=== PATIENT | male | born 1965 | race Caucasian/White ===

== ENCOUNTER 2022-01-25 11:02 | Outpatient (REF) | payer OTHER, SELFPAY ==
[2022-01-25 13:38] LABS: Alanine Aminotransferase 18 U/L (0-40); Albumin Level 4.6 g/dL (3.5-5.0); Alkaline Phosphatase 54 U/L (39-117); Anion Gap 9 (12-20); Aspartate Amino Transferase 23 U/L (5-37); Bilirubin Total 0.9 mg/dL (0.0-1.0); Blood Urea Nitrogen 14 mg/dL (9-16); Calcium 9.4 mg/dL (8.4-10.2); Carbon Dioxide 29 mmol/L (22-29); Chloride 104 mmol/L (96-108); Cholesterol 213 mg/dL; Estimated Glomerular Filt Rate > 60; Glucose Fasting 92 mg/dL (60-99); HDL Cholesterol 52 mg/dL; LDL Cholesterol Calculated 145 mg/dl; Potassium 4.1 mmol/L (3.3-5.1); Sodium 138 mmol/L (135-145); Total Protein 7.1 g/dL (6.5-8.0); Triglycerides 83 mg/dL
[2022-01-25 13:58] LABS: TSH reflex Free T4 0.91 uIU/mL (0.32-4.0)
[2022-01-25 13:59] LABS: Free T4 (Free Thyroxine) 1.07 ng/dL (0.71-1.85); Thyroid Stimulating Hormone 0.96 uIU/mL (0.32-4.0)
== END 2022-01-25 11:03 | disposition home or self-care (01) ==
LOC: HO.WFDLDS 11:02
PROVIDERS: Visit Provider Family Medicine
DX: Z00.00 Encounter for general adult medical examination without abnormal findings (principal); Z12.5 Encounter for screening for malignant neoplasm of prostate; E03.9 Hypothyroidism, unspecified
CPT/HCPCS: 36415; 80053; 80061; 84153; 84439; 84443

== ENCOUNTER 2022-04-21 12:56 | Outpatient (REF) | payer OTHER, SELFPAY ==
[2022-04-21 14:10] LABS: Appearance Urine CLEAR; Color Urine COLORLESS; Glucose Urine UA NEG (NEG); Leukocyte Esterase Urine TRACE (NEG); Nitrite Urine NEG (NEG); Specific Gravity - Urine <= 1.005 (1.005-1.025); Urine Blood TRACE (NEG); Urine Ketones NEG (NEG); Urine Protein NEG (NEG-TRACE)
[2022-04-21 14:24] LABS: RBC Urine 0 /HPF (0); WBC Urine 0-2 /HPF (0-4)
[2022-04-21 15:01] LABS: Free T4 (Free Thyroxine) 1.05 ng/dL (0.71-1.85); Thyroid Stimulating Hormone 1.41 uIU/mL (0.32-4.0)
[2022-04-23 17:11] LABS: Triiodothyronine T3 Total 111 ng/dL (76-181)
== END 2022-04-21 12:57 | disposition home or self-care (01) ==
LOC: HO.WFDLDS 12:56
PROVIDERS: Visit Provider Family Medicine
DX: E03.9 Hypothyroidism, unspecified (principal)
CPT/HCPCS: 36415; 81001; 81003; 84439; 84443; 84480

== ENCOUNTER 2022-06-16 13:53 | Outpatient (REF) | payer OTHER, SELFPAY ==
--- NOTE | ~2022-06-16 | US_ITS ---
EXAMINATION: US PELVIS LIMITED (BLADDER) CLINICAL INFORMATION: Poor urinary stream. COMPARISON: None TECHNIQUE: Real-time imaging of the bladder. FINDINGS: BLADDER: Well distended. The bladder wall is normal in thickness. No stone or mass. Bilateral ureteral jets are demonstrated. Prevoid bladder volume is 437 mL. Postvoid bladder volume is 172 mL. ADDITIONAL FINDINGS: The prostate gland is enlarged and measures 5.3 x 4.5 x 4.5 cm, volume 55 mL. US/US bladder IMPRESSION: Large post void bladder residual measuring 172 mL. Slightly enlarged prostate gland..
== END 2022-06-16 13:54 | disposition home or self-care (01) ==
LOC: HO.US 13:53
PROVIDERS: Visit Provider Urology
DX: R39.12 Poor urinary stream (principal); N32.0 Bladder-neck obstruction
CPT/HCPCS: 76857

== ENCOUNTER 2022-06-18 08:45 | Outpatient (REF) | payer OTHER, SELFPAY ==
[2022-06-18 11:40] LABS: PSA,Total (Free>4and<10) 4.64 ng/mL (0.00-4.00)
[2022-06-21 11:17] LABS: Free Prostate Spec Ag 0.8 ng/mL; Percent Free Prostate Spec Ag 15 % (calc) (>25); Prostate Specific Ag Total 5.4 ng/mL (< OR = 4.0)
== END 2022-06-18 08:46 | disposition home or self-care (01) ==
LOC: HO.10HDL 08:45
PROVIDERS: Visit Provider Urology
DX: R97.20 Elevated prostate specific antigen [PSA] (principal); Z12.5 Encounter for screening for malignant neoplasm of prostate
CPT/HCPCS: 36415; 84153; 84154

== ENCOUNTER 2022-07-21 09:34 | Outpatient (REF) | payer OTHER, SELFPAY ==
[2022-07-21 12:22] LABS: Cholesterol 219 mg/dL; HDL Cholesterol 55 mg/dL; LDL Cholesterol Calculated 148 mg/dl; Triglycerides 81 mg/dL
== END 2022-07-21 09:35 | disposition home or self-care (01) ==
LOC: HO.WFDLDS 09:34
PROVIDERS: Visit Provider Family Medicine
DX: Z00.00 Encounter for general adult medical examination without abnormal findings (principal); E03.9 Hypothyroidism, unspecified; E78.00 Pure hypercholesterolemia, unspecified
CPT/HCPCS: 36415; 80061

== ENCOUNTER 2022-09-06 08:26 | Outpatient (REF) | payer OTHER, SELFPAY ==
[2022-09-06 11:45] LABS: PSA,Total (Free>4and<10) 8.46 ng/mL (0.00-4.00)
[2022-09-07 11:09] LABS: Free Prostate Spec Ag 0.8 ng/mL; Percent Free Prostate Spec Ag 10 % (calc) (>25); Prostate Specific Ag Total 7.9 ng/mL (< OR = 4.0)
== END 2022-09-06 08:27 | disposition home or self-care (01) ==
LOC: HO.10HDL 08:26
PROVIDERS: Visit Provider Urology
DX: Z12.5 Encounter for screening for malignant neoplasm of prostate (principal); R97.20 Elevated prostate specific antigen [PSA]
CPT/HCPCS: 36415; 84153; 84154

== ENCOUNTER 2022-09-29 07:14 | Outpatient (REF) | payer OTHER, SELFPAY ==
[2022-09-29 07:53] VITALS: BMI 25.8
[2022-09-29 07:54] VITALS: BP 170/92; PULSE 54; RESP 16; TEMP 36.7; O2SAT 100
--- NOTE | 2022-09-29 08:22 | W.PM.OPN ---
Operative Note Operative Note Date of Service: 09/29/22 Narrative: Preoperative diagnosis: Elevated PSA Postoperative diagnosis: Elevated PSA Procedure: 1. transrectal ultrasound measurement of prostate 2. transrectal ultrasound-guided pudendal nerve block 3. transrectal ultrasound-guided prostate biopsy 12 core Surgeon: Dr. Washington King Anesthetic: Local Indications for procedure: Elevated PSA 7.9 10% free Procedure: After informed consent was verified, the patient was brought into the procedure area and lay left-hand side down on the table. Patient identity confirmed. Perioperative antibiotics confirmed. Safety pause time out performed. EMMANUEL performed to dilate rectal sphincter Iodine 10cc with Gel was placed per rectum Ultrasound probe was placed per rectum The prostate was measured in 3 dimensions Total volume equals 60 gm No cystic structures were noted No calcifications were noted at the surgical margin The prostate was otherwise homogeneous in nature An ultrasound-guided pudendal nerve block was performed using 10 cc of 1% lidocaine. 8 cc was placed at the base and 2 cc of the apex. A 12 core biopsy was performed with 6 cores each side. Two cores were taken at the apex, mid and base. Cores were spaced between lateral and medial. He tolerated the procedure well. Was able to ambulate to bathroom after 5 minutes. Printed instructions regarding antibiotic use and common side effects such as low-grade temperature, potential infection and bleeding were given Pathology: 12 core prostate biopsy.
[2022-09-29 08:35] VITALS: BP 103/61; PULSE 57; RESP 16; O2SAT 100
== END 2022-09-29 07:15 | disposition home or self-care (01) ==
LOC: HO.MS 07:14
PROVIDERS: PCP Family Medicine; Visit Provider Urology
PROC: (CPT 55700; principal; 2022-09-29 08:00)
DX: R97.20 Elevated prostate specific antigen [PSA] (principal)
CPT/HCPCS: 55700; 76942; 88305

== ENCOUNTER → 2022-10-06 13:09 | Outpatient (BNVA) | payer OTHER, SELFPAY | PROVIDERS: PCP Family Medicine; Visit Provider Urology | DX: R97.20 Elevated prostate specific antigen [PSA] (principal) ==

== ENCOUNTER 2022-10-22 09:21 | Outpatient (REF) | payer OTHER, SELFPAY ==
[2022-10-22 12:53] LABS: Free T4 (Free Thyroxine) 0.97 ng/dL (0.71-1.85); Thyroid Stimulating Hormone 4.26 uIU/mL (0.32-4.0)
[2022-10-23 08:04] LABS: Triiodothyronine T3 Total 103 ng/dL (76-181)
== END 2022-10-22 09:22 | disposition home or self-care (01) ==
LOC: HO.WFDLDS 09:21
PROVIDERS: Visit Provider Family Medicine
DX: E03.9 Hypothyroidism, unspecified (principal)
CPT/HCPCS: 36415; 84439; 84443; 84480

== ENCOUNTER 2022-10-25 09:36 | Outpatient (REF) | payer OTHER, SELFPAY ==
[2022-10-25 13:06] LABS: Free T4 (Free Thyroxine) 0.94 ng/dL (0.71-1.85)
[2022-10-26 07:23] LABS: Triiodothyronine T3 Total 109 ng/dL (76-181)
== END 2022-10-25 09:37 | disposition home or self-care (01) ==
LOC: HO.WFDLDS 09:36
PROVIDERS: Visit Provider Family Medicine
DX: E03.9 Hypothyroidism, unspecified (principal); E78.00 Pure hypercholesterolemia, unspecified
CPT/HCPCS: 36415; 84439; 84480

== ENCOUNTER 2023-01-03 08:04 | Outpatient (REF) | payer OTHER, SELFPAY ==
[2023-01-03 12:36] LABS: Anion Gap 10 (12-20); Blood Urea Nitrogen 13 mg/dL (9-16); Carbon Dioxide 29 mmol/L (22-29); Chloride 105 mmol/L (96-108); Cholesterol 183 mg/dL; Estimated Glomerular Filt Rate > 60; Glucose Random 82 mg/dL (60-115); HDL Cholesterol 53 mg/dL; LDL Cholesterol Calculated 116 mg/dl; Potassium 4.3 mmol/L (3.3-5.1); Sodium 140 mmol/L (135-145); Triglycerides 74 mg/dL
== END 2023-01-03 08:05 | disposition home or self-care (01) ==
LOC: HO.WFDLDS 08:04
PROVIDERS: Visit Provider Family Medicine
DX: Z00.00 Encounter for general adult medical examination without abnormal findings (principal); E78.00 Pure hypercholesterolemia, unspecified
CPT/HCPCS: 36415; 80048; 80061

== ENCOUNTER 2023-01-19 07:52 | Outpatient (REF) | payer OTHER, SELFPAY ==
[2023-01-19 11:45] LABS: Free T4 (Free Thyroxine) 0.94 ng/dL (0.71-1.85); TSH reflex Free T4 2.96 uIU/mL (0.32-4.0)
[2023-01-21 17:08] LABS: Triiodothyronine T3 Total 104 ng/dL (76-181)
== END 2023-01-19 07:53 | disposition home or self-care (01) ==
LOC: HO.WFDLDS 07:52
PROVIDERS: Visit Provider Family Medicine
DX: Z00.00 Encounter for general adult medical examination without abnormal findings (principal); E03.9 Hypothyroidism, unspecified
CPT/HCPCS: 36415; 84439; 84443; 84480

== ENCOUNTER 2023-03-22 07:33 | Outpatient (REF) | payer OTHER, SELFPAY ==
[2023-03-22 11:24] LABS: PSA,Total (Free>4and<10) 7.37 ng/mL (0.00-4.00)
[2023-03-28 12:09] LABS: Free Prostate Spec Ag 0.9 ng/mL; Percent Free Prostate Spec Ag 13 % (calc) (>25); Prostate Specific Ag Total 6.7 ng/mL (< OR = 4.0)
== END 2023-03-22 07:34 | disposition home or self-care (01) ==
LOC: HO.10HDL 07:33
PROVIDERS: Visit Provider Urology
DX: Z12.5 Encounter for screening for malignant neoplasm of prostate (principal); N13.8 Other obstructive and reflux uropathy; N40.1 Benign prostatic hyperplasia with lower urinary tract symptoms; R97.20 Elevated prostate specific antigen [PSA]
CPT/HCPCS: 36415; 84153; 84154

== ENCOUNTER 2023-04-12 15:19 | Outpatient (AMB) | payer OTHER, SELFPAY ==
--- NOTE | 2023-04-12 15:42 | MHC.OFFVIS ---
Intake Intake Visit Reasons: 6M PSA(set) Intake Note: Patient is present for Follow Up PSA Urology Med: None Antibiotic Allergy:None Blood Thinner: none Allergies No Known Allergies Allergy (Verified 01/11/23 08:54) HPI HPI Comments History of Present Illness Details Alexei is a pleasant male. He is a patient of Dr. Daily. He is seen for the following urologic conditions - elevated PSA Negative prostate biopsy Six month follow-up PSA Persistent elevated PSA Trial finasteride Elevated PSA Family history of BPH EMMANUEL 2+ prostate Prostate Biopsy - 09/23 Negative Inflammed 60gm PSA 03/24 5.6, 09/23 7.9 10%, 03/25 6.7 13% Discussed variability with PSA testing PFSH Medical History Hypothyroidism Surgical History H/O prostate biopsy Social History Housing: House Patient Tobacco Use Status: Never used Tobacco e-Cigarette/Vaping Use: Never Used Second Hand Smoke Exposure: No service: No Current occupational status: retired Current occupational exposures/hazards: No Cognitive needs: No Hearing needs: No Vision needs: No Review of Systems Const Denies chills and Denies fever(s) Card Reports no additional complaints and Denies syncope Resp Denies cough GI Denies abdominal pain and Denies heartburn Reports as per HPI and Denies change in libido Neuro Denies syncope Psych Denies change in libido Endo Denies change in libido Physical Exam Const General: cooperative, healthy appearing, comfortable and no acute distress Orientation/consciousness: patient oriented x3 HEENT Face and sinus: Yes normal facial exam Mouth: moist mucous membranes Neck Neck: Yes normal visual inspection, Yes full ROM and Yes trachea midline Chest Chest palpation & inspection: normal inspection of the chest Resp Effort & Inspection: normal respiratory effort, able to speak in complete sentences and no respiratory distress GI Inspection: Yes normal to inspection Back/Spine/Pelvis Cervical Spine: normal cervical lordosis Thoracic/Lumbar Spine: thoracic and lumbar spine normal to inspection Skin General skin exam: no rashes or lesions noted Neuro General: patient oriented x3, gait normal, tone normal and moves all extremities Extrem General: Yes normal to inspection and Yes capillary refill normal Assessment & Plan Assessment & Plan (1) Elevated PSA: Code(s): R97.20 - Elevated prostate specific antigen [PSA] Plan 6 month follow-up PSA Orders: Orders PSA,Total (Free>4and<10) 6 Months R97.20 - Elevated prostate specific antigen [PSA] Medications: New finasteride 5 mg PO DAILY 90 days 90 tabs 1RF R97.20 - Elevated prostate specific antigen [PSA] Patient Instructions: Imaging studies, laboratory and physical exam results were discussed and reviewed in detail. No major barriers to patient understanding were identified. An opportunity to ask questions regarding the treatment plan was provided. All questions were answered. The patient expressed understanding and agreement with the above treatment plan. The patient is aware they should contact our office by phone for worsening of their current condition or the appearance of new urologic symptoms. Compliance is encouraged with any medications and followup testing that is ordered. It is a privilege to participate in the urologic care of your patient. If you have any questions or concerns regarding treatment for the above conditions, or other urologic issues, please do not hesitate to contact me. The office telephone contact is [phone]. This note is constructed using voice recognition software. While every effort has been made to ensure accuracy curb setter errors may have been included. Yours sincerely, Dr Washington King MD, EMMANUELLE [facility] - Urology Providers of Expert, Compassionate Care for the Genitourinary System Coding Level of Care Code Est Pt Level 4 (91217) Diagnoses Elevated PSA R97.20
== END 2023-04-12 16:01 | disposition home or self-care (01) ==
PROVIDERS: Visit Provider Urology
DX: R97.20 Elevated prostate specific antigen [PSA] (principal)
CPT/HCPCS: 99214

== ENCOUNTER → 2023-04-12 15:19 | Outpatient (BNVA) | payer OTHER, SELFPAY | PROVIDERS: Visit Provider Urology ==

== ENCOUNTER 2023-10-07 07:56 | Outpatient (REF) | payer OTHER, SELFPAY | END 2023-10-07 07:57 | disposition home or self-care (01) | LOC: HO.LAB 07:56 | PROVIDERS: PCP Family Medicine; Visit Provider Urology | DX: Z12.5 Encounter for screening for malignant neoplasm of prostate (principal); R97.20 Elevated prostate specific antigen [PSA] | CPT/HCPCS: 36415; 84153 ==

== ENCOUNTER 2023-10-14 08:54 | Outpatient (AMB) | payer OTHER, SELFPAY ==
--- NOTE | 2023-10-14 08:55 | MHC.OFFVIS ---
Intake Intake Visit Reasons: 6M PSA(set)Conf Intake Note: Patient is Present for Telephone Follow Up PSA Urology Med:Finasteride Antibiotic Allergy: None Blood Thinner: None PSA- 10/07/2023- 3.41 Allergies No Known Allergies Allergy (Verified 01/11/23 08:54) Medication List - Last Reconciled 10/14/23 by Washington King MD finasteride 5 mg PO DAILY 90 days levothyroxine 125 mcg PO DAILY 90 days HPI HPI Comments History of Present Illness Details Alexei is a pleasant male. He is a patient of Dr. Daily. He is seen for the following urologic conditions - elevated PSA Telemedicine Evaluation 15 min Consultation Doximity Damien Video attempted Negative prostate biopsy Six month follow-up PSA has dropped Persistent elevated PSA Elevated PSA Family history of BPH EMMANUEL 2+ prostate Prostate Biopsy - 09/23 Negative Inflammed 60gm PSA 03/24 5.6, 09/23 7.9 10%, 03/25 6.7 13%, 10/26 3.4 Discussed variability with PSA testing PFSH Medical History Hypothyroidism Surgical History H/O prostate biopsy Social History Housing: House Patient Tobacco Use Status: Never used Tobacco e-Cigarette/Vaping Use: Never Used Second Hand Smoke Exposure: No service: No Current occupational status: retired Current occupational exposures/hazards: No Cognitive needs: No Hearing needs: No Vision needs: No Review of Systems Const All systems reviewed & are unremarkable except as noted in HPI and below Reports no additional complaints Resp Reports no additional complaints GI Reports no additional complaints Reports as per HPI Musc Reports no additional complaints Physical Exam Telemedicine evaluation Appropriate responses Regular breathing rate and rhythm HEENT Head: Yes normal to inspection Ears: hearing grossly normal bilaterally Eyes General: appearance normal, both eyes and all related structures Neck Neck: Yes normal visual inspection Chest Chest palpation & inspection: normal inspection of the chest Resp Effort & Inspection: normal respiratory effort and able to speak in complete sentences Assessment & Plan Assessment & Plan (1) Bladder outlet obstruction: Code(s): N32.0 - Bladder-neck obstruction (2) Elevated PSA: Code(s): R97.20 - Elevated prostate specific antigen [PSA] Plan Six-month follow-up PSA Orders: Orders Prostate Specific Antigen 6 Months R97.20 - Elevated prostate specific antigen [PSA] Medications: Refilled finasteride 5 mg PO DAILY 90 days 90 tabs 1RF R97.20 - Elevated prostate specific antigen [PSA] Patient Instructions: Imaging studies, laboratory and physical exam results were discussed and reviewed in detail. No major barriers to patient understanding were identified. An opportunity to ask questions regarding the treatment plan was provided. All questions were answered. The patient expressed understanding and agreement with the above treatment plan. The patient is aware they should contact our office by phone for worsening of their current condition or the appearance of new urologic symptoms. Compliance is encouraged with any medications and followup testing that is ordered. It is a privilege to participate in the urologic care of your patient. If you have any questions or concerns regarding treatment for the above conditions, or other urologic issues, please do not hesitate to contact me. The office telephone contact is [phone]. This note is constructed using voice recognition software. While every effort has been made to ensure accuracy media marketing director errors may have been included. Yours sincerely, Dr Washington King MD, EMMANUELLE [facility] - Urology Providers of Expert, Compassionate Care for the Genitourinary System Telehealth Telehealth Location of provider rendering services: practice address Location of patient: address on file Patient Identification confirmed using: Name, : Yes Telehealth method: video Patient verbally consented to treatment: Yes Patient verbally consented to billing insurance company: Yes Patient informed of any privacy concerns related to visit: Yes Coding Level of Care Code Tele Est Pt Level 3 (98755) Diagnoses Bladder outlet obstruction N32.0 Elevated PSA R97.20
== END 2023-10-14 09:29 | disposition home or self-care (01) ==
LOC: HO.HUSH 08:54
PROVIDERS: PCP Family Medicine; Referring Provider Family Medicine; Visit Provider Urology
DX: N32.0 Bladder-neck obstruction (principal); R97.20 Elevated prostate specific antigen [PSA]
CPT/HCPCS: 99213

== ENCOUNTER → 2023-10-14 08:54 | Outpatient (BNVA) | payer OTHER, SELFPAY | PROVIDERS: PCP Family Medicine; Visit Provider Urology ==

== ENCOUNTER 2024-04-04 08:12 | Outpatient (REF) | payer OTHER, SELFPAY ==
[2024-04-04 11:42] LABS: Prostate Specific Antigen 3.02 ng/mL (<0.05-4.0)
== END 2024-04-04 08:13 | disposition home or self-care (01) ==
LOC: HO.10HDL 08:12
PROVIDERS: Visit Provider Urology
DX: R97.20 Elevated prostate specific antigen [PSA] (principal); Z12.5 Encounter for screening for malignant neoplasm of prostate
CPT/HCPCS: 36415; 84153

== ENCOUNTER 2024-05-22 08:21 | Outpatient (AMB) | payer OTHER, SELFPAY ==
--- NOTE | 2024-05-22 08:27 | MHC.OFFVIS ---
Intake Visit Reasons: 6M Follow Up-PSA(SET) Intake Note: Patient presents today for follow up on: PSA Urology Med:Finasteride Antibiotic Allergy: None Blood Thinner: None PSA: 04/04/24- 3.02 Dog Food Shredder Operator Required: No Allergies No Known Allergies Allergy (Verified 05/22/24 08:32) HPI Comments Details: Alexei is a pleasant male. He is a patient of Dr. Daily. He is seen for the following urologic conditions - elevated PSA PSA stable Prior Negative prostate biopsy PSA continues slow drop Continue finasteride / tab t.i.w. Six-month follow-up PSA tele Elevated PSA Family history of BPH EMMANUEL 2+ prostate Prostate Biopsy - 09/23 Negative Inflamed 60gm PSA 03/24 5.6, 09/23 7.9 10%, 03/25 6.7 13%, 10/26 3.4, 04/25 3.0 Discussed variability with PSA testing PFSH Medical History Hypothyroidism Surgical History H/O prostate biopsy Social History Housing: House Patient Tobacco Use Status: Never used Tobacco e-Cigarette/Vaping Use: Never Used Second Hand Smoke Exposure: No service: No Current occupational status: retired Current occupational exposures/hazards: No Cognitive needs: No Hearing needs: No Vision needs: No Review of Systems Const Denies chills and Denies fever(s) Card Reports no additional complaints and Denies syncope Resp Denies cough GI Denies abdominal pain and Denies heartburn Reports as per HPI and Denies change in libido Neuro Denies syncope Psych Denies change in libido Endo Denies change in libido Physical Exam Const General: cooperative, healthy appearing, comfortable and no acute distress Orientation/consciousness: patient oriented x3 HEENT Face and sinus: Yes normal facial exam Mouth: moist mucous membranes Neck Neck: Yes normal visual inspection, Yes full ROM and Yes trachea midline Chest Chest palpation & inspection: normal inspection of the chest Resp Effort & Inspection: normal respiratory effort, able to speak in complete sentences and no respiratory distress GI Inspection: Yes normal to inspection Back/Spine/Pelvis Cervical Spine: normal cervical lordosis Thoracic/Lumbar Spine: thoracic and lumbar spine normal to inspection Skin General skin exam: no rashes or lesions noted Neuro General: patient oriented x3, gait normal, tone normal and moves all extremities Extrem General: Yes normal to inspection and Yes capillary refill normal Assessment & Plan Assessment & Plan (1) Bladder outlet obstruction: Code(s): N32.0 - Bladder-neck obstruction Category: Medical (2) Elevated PSA: Code(s): R97.20 - Elevated prostate specific antigen [PSA] Category: Medical Plan Six-month follow-up PSA tele Orders: Orders PSA,Total (Free>4and<10) 6 Months R97.20 - Elevated prostate specific antigen [PSA] Medications: Refilled finasteride 5 mg PO DAILY 90 days 90 tabs 1RF R97.20 - Elevated prostate specific antigen [PSA] Patient Instructions: Imaging studies, laboratory and physical exam results were discussed and reviewed in detail. No major barriers to patient understanding were identified. An opportunity to ask questions regarding the treatment plan was provided. All questions were answered. The patient expressed understanding and agreement with the above treatment plan. The patient is aware they should contact our office by phone for worsening of their current condition or the appearance of new urologic symptoms. Compliance is encouraged with any medications and followup testing that is ordered. It is a privilege to participate in the urologic care of your patient. If you have any questions or concerns regarding treatment for the above conditions, or other urologic issues, please do not hesitate to contact me. The office telephone contact is [phone]. This note is constructed using voice recognition software. While every effort has been made to ensure accuracy vaccine customer representative errors may have been included. Yours sincerely, Dr Washington King MD, EMMANUELLE [facility] - Urology Providers of Expert, Compassionate Care for the Genitourinary System Coding Level of Care Code Est Pt Level 3 (86770) Diagnoses Bladder outlet obstruction N32.0 Elevated PSA R97.20
== END 2024-05-22 08:58 | disposition home or self-care (01) ==
LOC: HO.HUSH 08:21
PROVIDERS: PCP Family Medicine; Visit Provider Urology
DX: N32.0 Bladder-neck obstruction (principal); R97.20 Elevated prostate specific antigen [PSA]
CPT/HCPCS: 99213

== ENCOUNTER → 2024-05-22 08:21 | Outpatient (BNVA) | payer OTHER, SELFPAY | PROVIDERS: PCP Family Medicine; Visit Provider Urology ==

== ENCOUNTER 2024-07-25 07:59 | Outpatient (AMB) | payer OTHER, SELFPAY ==
--- NOTE | 2024-07-25 07:59 | A.OFFPC_ITS ---
Vital Signs 07/25/24 08:06 Height 5 ft 10 in Weight 184 lb 2 oz BMI 26.4 BP 138/76 Blood Pressure Location Lt brachial Position Sitting Respiration 14 Pulse 53 Pulse Source Pulse Oximeter Pulse Oximetry (%) 98 Oxygen Delivery Method Room Air Intake Visit Reasons: CPE Intake Note: annual physical Allergies No Known Allergies Allergy (Verified 07/25/24 08:12) Medication List - Last Reconciled 07/25/24 by Rhiannon Hernandez, [facility]- finasteride 5 mg PO DAILY 90 days levothyroxine 125 mcg PO DAILY 90 days Tobacco use date assessed: 07/25/24 Dental Screening Dental Screen Date: 07/25/24 Did you have a dental visit in the last 12 months?: Yes Did you have a dental problem in the last 6 months where you did not have access to dental care?: No Was dental information given to patient?: Patient has dentist HPI HPI Comments History of Present Illness Details 58 y/o M with hypothyroid, family hx col on ca, hyperlipidemia, BPH with elevated PSA, cataracts bilat s/p prostate bx benign, left index distal phalanx amputation, s/p repair R fibula and tendon tear 01/2024 Family hx: Dad colon ca age 50; Sister breast ca age 42; 3 brothers, 6 sisters, 2 dtrs HM: Colon 2019, repeat 5 years [facility] Tdap 2011, given today Shingles recommended getting this at pharmacy scheduler [facility] Here today for CPE Feels well. 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 No longer ff'd by Ortho. Did not need PT. Due for labs Optho did have eye appt d/t poor vision, told small cataracts; return PRN Skin no changes, no personal hx of skin cancer. Dad had areas removed from skin but noncancerous Diet is good Hearing is good Plan: Labs today Tdap today Get shingles at pharmacy Refill levothyroxine same dose Lifestyle mods and Diet education for lipids, annual monitoring Cont care w/ care team RTO 1 year CPE, sooner PRN Labs from today show normal electrolytes, normal renal function, hemoglobin A1c 5.1%, AST elevated at 53, ALT elevated at 69, total cholesterol 182, triglycerides 114, LDL 120, HDL 40, TSH 2.68, normal urine microalbumin creatinine ratio PFSH Medical History Hypothyroidism Surgical History H/O prostate biopsy Social History Housing: House Patient Tobacco Use Status: Never used Tobacco e-Cigarette/Vaping Use: Never Used Second Hand Smoke Exposure: No service: No Current occupational status: retired Current occupational exposures/hazards: No Cognitive needs: No Hearing needs: No Vision needs: No Questionnaire PHQ-9 Over the last 2 weeks, how often have you been bothered by any of the following problems? 1. Little interest or pleasure in doing things: not at all 2. Feeling down, depressed, or hopeless: not at all 3. Trouble falling or staying asleep, or sleeping too much: not at all 4. Feeling tired or having little energy: not at all 5. Poor appetite or overeating: not at all 6. Feeling bad about yourself - or that you are a failure or have let yourself or your family down: not at all 7. Trouble concentrating on things, such as reading the newspaper or watching television: not at all 8. Moving or speaking so slowly that other people could have noticed. Or the opposite - being so fidgety or restless that you have been moving around a lot more than usual: not at all 9. Thoughts that you would be better off or of hurting yourself in some way: not at all Total score: 0 Depression Screening Interpretation: Negative Depression Screening Done: Yes 82138 - PHQ-9 Billing: Yes Source: Developed by Drs. Wenceslao Camilo, Bibiana Gleason, Rahul David and colleagues, with an educational senait from [employer]. Thrive Questionnaire Date Thrive assessed: 07/25/24 I am a: Patient What is your living situation today?: I have a steady place to live Within the past 12 months, did the food you bought not last and you didn't have the money to get more?: I choose not to answer this question Within the past 12 months, did you worry whether your food would run out before you got money to buy more?: Never true Do you have trouble paying for medicines?: No Do you have trouble getting transportation to medical appointments?: No Do you have trouble paying your heating and electricity bill?: No Do you have trouble taking care of your child, family member or friend?: No Do you have trouble with day-to-day activities such as bathing, preparing meals, shopping, managing finances, etc.?: No Are you currently unemployed and looking for a job?: No Are you interested in more education?: No Please select the resources that you would like help with: None Currently or been in a relationship where the following occur: No concerns reported THRIVE Score: 0 AUDIT C Alcohol Use Questionnaire (AUDIT-C) 1. How often do you have a drink containing alcohol?: 2-4 times a month 2. How many drinks containing alcohol do you have on a typical day when you are drinking?: 1 or 2 3. How often do you have six or more drinks on one occasion?: Never Total Score: 2 Score Reviewed/Action Taken: Yes TIO-7 AMB Questionnaire TIO-7 Date TIO - 7 assessed: 07/25/24 Feeling nervous, anxious, or on edge: 0 = Not at all Not being able to stop or control worryin = Not at all Worrying too much about different things: 0 = Not at all Trouble relaxin = Not at all Being so restless that it is hard to sit still: 0 = Not at all Becoming easily annoyed or irritable: 0 = Not at all Feeling afraid as if something awful might happen: 0 = Not at all Total TIO-7 score (0-4 normal; 5-9 mild; 10-14 moderate; 15-21 severe): 0 Source: Developed by Drs. Wenceslao Camilo, Bibiana Gleason, Rahul David and colleagues, with an educational senait from [employer]. TIO-7 Assessment Billing TIO-7 Assessment Tool: TIO-7 Assessment 38600 Review of Systems Const Details: Constitutional: Denies fever. Skin: Denies rash. Eye: Denies eye pain. ENMT: Denies sore throat and nasal congestion. Respiratory: Denies shortness of breath and cough. Gastrointestinal: Denies nausea, vomiting or abdominal pain. Cardiovascular: Denies chest pain and syncope. Genitourinary: Denies dysuria. Musculoskeletal: Denies back pain and extremity pain. Neurologic: Denies headaches, confusion, and weakness. Psychiatric: Denies suicidal thoughts and substance abuse. Allergy/ Immunologic: Denies impaired immunity. Physical exam (Primary Care) Vital Signs: Last Vital Signs Pulse 53 07/25/24 08:06 Resp 14 07/25/24 08:06 BP 138/76 07/25/24 08:06 Pulse Ox 98 07/25/24 08:06 Oxygen Delivery Method Room Air 07/25/24 08:06 BMI result Body Mass Index 26.4 Tobacco/Smoking Status: Tobacco use Status Tobacco use date assessed 07/25/24 07/25/24 08:06 Patient Tobacco Use Status Never used Tobacco 07/25/24 08:00 e-Cigarette/Vaping Use Never Used 07/25/24 08:00 PHQ-9: PHQ-9 Score PHQ-9: Total score 0 07/25/24 08:38 Depression Screening Interpretation: Negative Thrive Assessment: Date of Thrive Assessment Date Thrive assessed 07/25/24 07/25/24 08:06 Currently or been in a relationship where the following occur: No concerns reported Const Other: General: Well developed, well nourished, in no acute distress. Appears stated age. Head: Normocephalic, atraumatic. Eyes: Pupils are equal, round and reactive to light and accommodation. Conjunctivae are clear. Vision grossly normal. Ears: TMs clear AU, EACS WNL Nose: Patent, without discharge. Mouth: There are no ulcers or lesions noted. No inflammation, no post nasal drip, no plaques nor exudates. Neck: Supple, no adenopathy or thyromegaly. Lungs: Clear to auscultation bilaterally. No rales, rhonchi or wheeze noted. Good air flow in all nicole. Heart: Regular rate and rhythm. No murmurs, click, rubs or gallops are noted. Abdomen: Bowel sounds present in all quadrants. The abdomen is soft, nontender, with no masses or organomegaly noted. No hernias are noted. Musculoskeletal: Joints are nontender, without swelling, redness, or effusions. Range of motion is observed to be normal. Pulses: Peripheral pulses are equal and palpable bilaterally. Extremities: No clubbing, cyanosis nor edema is noted. Left index distal phalanx amputation Neurologic: Gait and station normal. Cranial Nerves 2-12 intact. Motor strength grossly symmetrical and intact. No sensory loss. Balance normal. Skin: No rashes, ulcers, or lesions noted. Turgor is good. Skin color is good. Hair and nails are without abnormalities. Psych: Normal eye contact, affect and mood appropriate, and normal interactions. Patient is alert and appropriate to context. Immunizations Boostrix Tdap 2.5 Lf unit-8 mcg-5 Lf/0.5 mL intramuscular syringe Performing Provider: SHYAM Navarrete Performing Location: [facility] [place] [facility] Administered by: Thea Flood RN on 07/25/24 08:39 Dose Route Admin Location Dispensed Lot Number Expiration Date [facility] Adjunct Instructor In Economics 0.5 mL IM Left Deltoid 0.5 mL [id number] 06/30/25 [id number] [employer] Records VIS Given Date VIS Provided VIS Publication Date 07/25/24 Single Vaccine 21 Eligibility Eligibility Date Funding Source Not [facility] Eligible 07/25/24 Private Coding Level of Care Code Est Pt Prev Care 40-64y(86703) Diagnoses Adult general medical exam Z00.00 Hypercholesterolemia E78.00 Acquired hypothyroidism E03.9 Hypothyroidism type: acquired Elevated PSA R97.20 Bladder outlet obstruction N32.0 Family history of colon cancer Z80.0 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 (2) Hypercholesterolemia: Code(s): E78.00 - Pure hypercholesterolemia, unspecified Category: Medical Plan: . To reduce low-density lipoprotein (LDL) cholesterol, you can try making lifestyle changes to your diet, exercise, and other habits: Eat a heart-healthy diet Limit saturated and trans fats, and eat more foods with healthy fats, like nuts, seeds, and unsaturated oils. You can also try eating more soluble fiber, which can help reduce the amount of cholesterol your body absorbs. Foods high in soluble fiber include whole grains, fruits, and legumes. Exercise regularly Aim for at least 150 minutes of exercise per week, such as walking, swimming, or cycling. Maintain a healthy weight Losing weight can help lower LDL cholesterol, especially if you are overweight or obese. Manage stress Chronic stress can raise LDL cholesterol, so try to find healthy ways to manage it. Quit smoking Smoking can raise cholesterol and increase the risk of serious health problems. Get enough sleep Aim for 7 to 9 hours of sleep per night. You should also limit foods with cholesterol, which are found in animal products like liver, egg yolks, and whole milk dairy products. (3) Hypothyroidism: Code(s): E03.9 - Hypothyroidism, unspecified Category: Medical Qualifiers: Hypothyroidism type: acquired Qualified Code(s): E03.9 - Hypothyroidism, unspecified Plan: . (4) Elevated PSA: Code(s): R97.20 - Elevated prostate specific antigen [PSA] Category: Medical Plan: . (5) Bladder outlet obstruction: Code(s): N32.0 - Bladder-neck obstruction Category: Medical Plan: . (6) Family history of colon cancer: Code(s): Z80.0 - Family history of malignant neoplasm of digestive organs Category: Medical Plan: . 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 (8) Laboratory exam ordered as part of routine general medical examination: Code(s): Z00.00 - Encounter for general adult medical examination without abnormal findings Category: Medical Plan: . Orders: Orders TSH reflex Free T4 Today E03.9 - Hypothyroidism, unspecified, E78.00 - Pure hypercholesterolemia, unspecified, R97.20 - Elevated prostate specific antigen [PSA], Z00.00 - Encounter for general adult medical examination without abnormal findings TDaP Immunization Today Z23 - Encounter for immunization Comprehensive [place]. Panel Fast Today E03.9 - Hypothyroidism, unspecified, E78.00 - Pure hypercholesterolemia, unspecified, R97.20 - Elevated prostate specific antigen [PSA], Z00.00 - Encounter for general adult medical examination without abnormal findings Hemoglobin A1c Today E03.9 - Hypothyroidism, unspecified, E78.00 - Pure hypercholesterolemia, unspecified, R97.20 - Elevated prostate specific antigen [PSA], Z00.00 - Encounter for general adult medical examination without abnormal findings Lipid Panel Today E03.9 - Hypothyroidism, unspecified, E78.00 - Pure hy percholesterolemia, unspecified, R97.20 - Elevated prostate specific antigen [PSA], Z00.00 - Encounter for general adult medical examination without abnormal findings Microalbumin, Random (w Creat) Today E03.9 - Hypothyroidism, unspecified, E78.00 - Pure hypercholesterolemia, unspecified, R97.20 - Elevated prostate specific antigen [PSA], Z00.00 - Encounter for general adult medical examination without abnormal findings Medications: Refilled levothyroxine 125 mcg PO DAILY 90 days 90 tabs 2RF Patient Instructions: Health screenings for men ages 40 to 64 You should visit your health care provider regularly, even if you feel healthy. The purpose of these visits is to: Screen for medical issues Assess your risk for future medical problems Encourage a healthy lifestyle Update vaccinations and other preventive care services Help you get to know your provider in case of an illness Information Even if you feel fine, you should still see your provider for regular checkups. These visits can help you avoid problems in the future. For example, the only way to find out if you have high blood pressure is to have it checked regularly. High blood sugar and high cholesterol level also may not have any symptoms in the early stages. Simple blood tests can check for these conditions. There are specific times when you should see your provider or receive specific health screenings. The [place] Preventive Services Task Force publishes a list of recommended screenings. Below are screening guidelines for men ages 40 to 64. BLOOD PRESSURE SCREENING Have your blood pressure checked at least once every year. Watch for blood pressure screenings in your area. Ask your provider if you can stop in to have your blood pressure checked. Ask your provider if you need your blood pressure checked more often if: You have diabetes, heart disease, kidney problems, or are overweight or have certain other health conditions You have a first-degree relative with high blood pressure You are Black Your blood pressure top number is from 120 to 129 mm Hg, or the bottom number is from 70 to 79 mm Hg If the top number is 130 mm Hg or greater or the bottom number is 80 mm Hg or greater, this is considered stage 1 hypertension. Schedule an appointment with your provider to learn how you can lower your blood pressure. Effects of age on blood pressure CHOLESTEROL SCREENING Cholesterol screening should begin at age 35 for men with no known risk factors for coronary heart disease. Repeat cholesterol screening should take place: Every 5 years for men with normal cholesterol levels More often if changes occur in lifestyle (including weight gain and diet) More often if you have diabetes, heart disease, kidney problems, or certain other conditions COLORECTAL CANCER SCREENING If you are under age 45, talk to your provider about getting screened. You may need to be screened if you have a strong family history of colon cancer or polyps. Screening may also be considered if you have risk factors such as a history of inflammatory bowel disease or polyps. If you are age 45 to 75, you should be screened for colorectal cancer. There are several screening tests available: A stool-based fecal occult blood (gFOBT) or fecal immunochemical test (FIT) every year A stool sDNA test every 1 to 3 years Flexible sigmoidoscopy every 5 years or every 10 years with stool testing FIT done every year CT colonography (virtual colonoscopy) every 5 years Colonoscopy every 10 years You may need a colonoscopy more often if you have risk factors for colorectal cancer, such as: Ulcerative colitis A personal or family history of colorectal cancer A history of growths in your colon called adenomatous polyps DENTAL EXAM Go to the dentist once or twice every year for an exam and cleaning. Your dentist will evaluate if you have a need for more frequent visits. DIABETES SCREENING All adults who do not have risk factors for diabetes should be screened starting at age 35 and repeated every 3 years. If you have other risk factors for diabetes, such as a first degree relative with diabetes, overweight or obesity, high blood pressure, prediabetes, or a history of heart disease, you may be tested more often. If you are overweight and have other risk factors, such as high blood pressure and are planning to become , screening is recommended. EYE EXAM Have an eye exam every 2 to 4 years ages 40 to 54 and every 1 to 3 years ages 55 to 64. Your provider may recommend more frequent eye exams if you have vision problems or glaucoma risk. Have an eye exam that includes an examination of your retina (back of your eye) at least every year if you have diabetes. IMMUNIZATIONS Commonly needed vaccines include: Flu shot: get one every year SYLVAIN-19 vaccine: ask your provider what is best for you Tetanus-diphtheria and acellular pertussis (Tdap) vaccine: have as one of your tetanus-diphtheria vaccines if you did not receive it as an adolescent Tetanus-diphtheria: have a booster (or Tdap) every 10 years Varicella vaccine: receive 2 doses if you never had chickenpox or the varicella vaccine and were born in 1980 or after Hepatitis B vaccine: receive 2, 3, or 4 doses, depending on your exact circumstances, if you did not receive these as a child or adolescent, until age 59 Shingles (herpes zoster) vaccine: at or after age 50 Ask your provider if you should receive other immunizations, especially if you have certain medical conditions, such as diabetes or are at increased risk for some diseases such as pneumonia. INFECTIOUS DISEASE SCREENING Screening for hepatitis C: all adults ages 18 to 79 should get a one-time test for hepatitis C. Screening for human immunodeficiency virus (HIV): all people ages 15 to 65 should get a one-time test for HIV. Depending on your lifestyle and medical history, you may need to be screened for infections such as syphilis, chlamydia, and other infections. LUNG CANCER SCREENING You should have an annual screening for lung cancer with low-dose computed tomography (LDCT) if: You are age 50 to 80 years AND You have a 20 pack-year smoking history AND You currently smoke or have quit within the past 15 years OSTEOPOROSIS SCREENING If you are age 50 to 64 and have risk factors for osteoporosis, you should discuss screening with your provider. Risk factors can include long-term steroid use, low body weight, smoking, heavy alcohol use, having a fracture after age 50, or a family history of hip fracture or osteoporosis. Osteoporosis PHYSICAL EXAM All adults should visit their provider from time to time, even if they are healthy. The purpose of these visits is to: Screen for diseases Assess risk of future medical problems Encourage a healthy lifestyle Update vaccinations and other preventive care services Maintain a relationship with a provider in case of an illness Your height, weight, and body mass index (BMI) should be checked at every exam. During your exam, your provider may ask you about: Depression and anxiety Diet and exercise Alcohol and tobacco use Safety, such as use of seat belts and smoke detectors Your medicines and risk for interactions PROSTATE CANCER SCREENING If you're 55 through 69 years old, before having the test, talk to your provider about the pros and cons of having a PSA test. Ask about: Whether screening decreases your chance of dying from prostate cancer. Whether there is any harm from prostate cancer screening, such as side effects from testing or overtreatment of cancer when discovered. Whether you have a higher risk of prostate cancer than others. If you are age 55 or younger, screening is not generally recommended. You should talk with your provider about if you have a higher risk for prostate cancer. Risk factors include: Having a family history of prostate cancer (especially a brother or father) Being If you choose to be tested, the PSA blood test is repeated over time (yearly or less often), though the best frequency is not known. Prostate examinations are no longer routinely done on men with no symptoms. Prostate cancer SKIN EXAM Your provider may check your skin for signs of skin cancer, especially if you're at high risk. People at high risk include those who have had skin cancer before, have close relatives with skin cancer, or have a weakened immune system. TESTICULAR EXAM The [place] Preventive Services Task Force (USPSTF) now recommends against performing testicular self-exams. Doing testicular self-exams has been shown to have little to no benefit.
[2024-07-25 08:06] VITALS: BP 138/76; PULSE 53; RESP 14; O2SAT 98; BMI 26.4
== END 2024-07-25 08:38 | disposition home or self-care (01) ==
PROVIDERS: PCP Family Medicine; Visit Provider Nurse Practitioner Family
DX: Z00.00 Encounter for general adult medical examination without abnormal findings (principal); E78.00 Pure hypercholesterolemia, unspecified; S68.62 Partial traumatic transphalangeal amputation of other and unspecified finger; E03.9 Hypothyroidism, unspecified; R97.20 Elevated prostate specific antigen [PSA]; N32.0 Bladder-neck obstruction; Z80.0 Family history of malignant neoplasm of digestive organs

== ENCOUNTER → 2024-07-25 07:59 | Outpatient (BNVA) | payer OTHER, SELFPAY | PROVIDERS: PCP Family Medicine; Visit Provider Nurse Practitioner Family | DX: Z00.00 Encounter for general adult medical examination without abnormal findings (principal); E78.00 Pure hypercholesterolemia, unspecified; E03.9 Hypothyroidism, unspecified; R97.20 Elevated prostate specific antigen [PSA]; N32.0 Bladder-neck obstruction; S68.62 Partial traumatic transphalangeal amputation of other and unspecified finger; Z80.0 Family history of malignant neoplasm of digestive organs; Z23 Encounter for immunization | CPT/HCPCS: 90471; 90715; 96127 ==

== ENCOUNTER 2024-07-25 08:44 | Outpatient (REF) | payer OTHER, SELFPAY ==
[2024-07-25 11:42] LABS: Estimated Average Glucose 100 mg/dL; Hemoglobin A1C 124.0779 umol/L; Hemoglobin A1c % 5.1 % (<6.0)
[2024-07-25 12:27] LABS: Alanine Aminotransferase 69 U/L (0-40); Albumin Level 4.2 g/dL (3.5-5.0); Alkaline Phosphatase 75 U/L (39-117); Anion Gap 11 (12-20); Aspartate Amino Transferase 53 U/L (5-37); Bilirubin Total 0.8 mg/dL (0.0-1.0); Blood Urea Nitrogen 13 mg/dL (9-16); Calcium 9.4 mg/dL (8.4-10.2); Carbon Dioxide 30 mmol/L (22-29); Chloride 103 mmol/L (96-108); Cholesterol 182 mg/dL (<200); Estimated Glomerular Filt Rate > 60; Glucose Fasting 95 mg/dL (60-99); HDL Cholesterol 40 mg/dL (>40); LDL Cholesterol Calculated 120 mg/dL (<100); Potassium 4.2 mmol/L (3.3-5.1); Sodium 140 mmol/L (135-145); Total Protein 7.2 g/dL (6.5-8.0); Triglycerides 114 mg/dL (<150)
[2024-07-25 12:40] LABS: Creatinine Urine 65.15 mg/dL; Microalbumin Urine < 5.0 mg/L
[2024-07-25 12:51] LABS: TSH reflex Free T4 2.68 uIU/mL (0.32-4.0)
== END 2024-07-25 08:45 | disposition home or self-care (01) ==
LOC: HO.WFDLDS 08:44
PROVIDERS: Visit Provider Nurse Practitioner Family
DX: Z00.00 Encounter for general adult medical examination without abnormal findings (principal); Z13.1 Encounter for screening for diabetes mellitus; E78.00 Pure hypercholesterolemia, unspecified; R97.20 Elevated prostate specific antigen [PSA]; E03.9 Hypothyroidism, unspecified
CPT/HCPCS: 36415; 80053; 80061; 82043; 82570; 83036; 84443

== ENCOUNTER 2024-08-08 09:35 | Outpatient (AMB) | payer OTHER, SELFPAY ==
--- NOTE | 2024-08-08 09:37 | A.OFFPC_ITS ---
Intake Visit Reasons: Fu on blood work Allergies No Known Allergies Allergy (Verified 08/08/24 09:37) Medication List - Last Reconciled 08/08/24 by Rhiannon Hernandez [facility] finasteride 5 mg PO DAILY 90 days levothyroxine 125 mcg PO DAILY 90 days Tobacco use date assessed: 07/25/24 Dental Screening Dental Screen Date: 07/25/24 HPI HPI Comments History of Present Illness Details 58 y/o M with hypothyroid, family hx col on ca, hyperlipidemia, BPH with elevated PSA, cataracts bilat s/p prostate bx benign, left index distal phalanx amputation, s/p repair R fibula and tendon tear 01/2024 Telehealth visit today to review labs from 07/25/24: normal electrolytes, normal renal function, hemoglobin A1c 5.1%, AST elevated at 53, ALT elevated at 69, total cholesterol 182, triglycerides 114, LDL 120, HDL 40, TSH 2.68, normal urine microalbumin creatinine ratio Today he expresses concern for the elevation in his liver enzymes. Review of his chart shows that the previous values in 2021 were within normal limits. Wh en asked about abdominal symptoms, he denies any abdominal pain. Does report about 1 month ago he developed an ache around his diaphragm he reports that this ache it is random. His abdomen is not tender to the touch. When he bends over he can feel what he describes as a cramp. It was located in the same spot. The cramps or aches sensation does not move. Some days he does not have it at all. He can not correlate his symptoms with food intake or fasting. He does feel bloated quickly after eating however this started over the summer and is not worse since onset. He reports that this is very short-lived. Reports normal bowel movements. When asked about supplement use he states that he has occasional multivitamin intake but otherwise no supplements. He currently has infrequent use of Tylenol around 1 time per month to treat headaches. He was unsure of the exact dose but he states that he only takes 2 tablets per day during episodic headaches. Prior to that in January he did have an orthopedic injury and was taking several doses several times per day of Tylenol for about 6 weeks. He denies any alcohol use. Plan Discuss with him the differential diagnoses related to elevated LFTs. We will proceed with labs and stool testing. Depending on the results may proceed to abdominal ultrasound testing and/or referral to Gastroenterology. A telehealth visit will be arranged once the results are available to discuss with him in detail and review the next steps. Educated on reasons to return to the office or seek care sooner. This note is constructed using voice recognition software. While every effort has been made to ensure accuracy in nurse transition, still errors may have been included Sometimes, these errors may affect the content or meaning of the given sentence . Total time spent caring for the patient today was 21 minutes. This includes time spent before the visit reviewing the chart, time spent during the visit, and time spent after the visit on documentation PFSH Medical History Hypothyroidism Surgical History H/O prostate biopsy Social History Housing: House Patient Tobacco Use Status: Never used Tobacco e-Cigarette/Vaping Use: Never Used Second Hand Smoke Exposure: No service: No Current occupational status: retired Current occupational exposures/hazards: No Cognitive needs: No Hearing needs: No Vision needs: No Questionnaire Thrive Questionnaire Date Thrive assessed: 07/25/24 TIO-7 AMB Questionnaire TIO-7 Date TIO - 7 assessed: 07/25/24 Source: Developed by Drs. Wenceslao Camilo, Bibiana Gleason, Rahul David and colleagues, with an educational senait from [employer]. Physical exam (Primary Care) Tobacco/Smoking Status: Tobacco use Status Tobacco use date assessed 07/25/24 08/08/24 09:37 Patient Tobacco Use Status Never used Tobacco 08/08/24 09:37 e-Cigarette/Vaping Use Never Used 08/08/24 09:37 Thrive Assessment: Date of Thrive Assessment Date Thrive assessed 07/25/24 08/08/24 09:37 Telehealth Telehealth Telehealth Platform: [facility] Location of provider rendering services: practice address Location of patient: address on file Patient Identification confirmed using: Name, : Yes Telehealth method: voice only Patient verbally consented to treatment: Yes Patient verbally consented to billing insurance company: Yes Patient informed of any privacy concerns related to visit: Yes Minutes spent on Phone/Video with Pt.: 14 Results Reviewed Results Reviewed: RUN: 08/08/24 0939 PAGE 1 [facility] [address] [place] [id number] Harness Rigger: Eduardo Badillo M.D. Specimen Inquiry Name: Alexei Cochran Age/Sex: 58/M : 1965 Unit#: [id number] Attend Dr: Rhiannon Hernandez Re07/25/24 Status: DEP REF Location: [facility] Disch: SPEC : [id number] CAM: 07/25/24 STATUS: COMP REQ : [id number] RECD: 07/25/[address]: Rhiannno Hernandez COMP: 07/25/24 ENTERED: 07/25/[address]: ORDERED: CMP Fast, Lipid Panel, TSH Rflx Test Result Flag Reference Sodium 140 135-145 mmol/L Potassium 4.2 3.3-5.1 mmol/L CL 103 96-108 mmol/L CO2 30 H 22-29 mmol/L Gap 11 L 12-20 BUN 13 9-16 mg/dL Creat 0.91 0.5-1.4 mg/dL EGFR > 60 NOTE: For -Chinese individuals, multiply the result by 1.210. Chronic Kidney Disease: Estimated GFR < 60 mL/min/1.73m2 Severe Kidney Disease: Estimated GFR < 15 mL/min/1.73m2 FBS 95 60-99 mg/dL CA 9.4 8.4-10.2 mg/dL Total Bili 0.8 0.0-1.0 mg/dL AST (GOT) 53 H 5-37 U/L ALT (GPT) 69 H 0-40 U/L Protein, Total 7.2 6.5-8.0 g/dL Alb 4.2 3.5-5.0 g/dL Triglyceride 114 <150 mg/dL Desirable Triglyceride: less than 150 mg/dL Borderline High Triglyceride 150-199 mg/dL High Triglyceride: 200-499 mg/dL Very High Triglyceride: greater than or equal to 5OO mg/dL Cholesterol 182 <200 mg/dL Desirable Cholesterol: less than 200 mg/dL Borderline High Cholesterol: 200-239 mg/dL High Cholesterol: greater than 239 mg/dL LDL Calculated 120 H <100 mg/dL Desirable LDL: less than 100 mg/dL Near Optimal/Above Optimal LDL: 110-129 mg/dL Borderline High LDL: 130-159 mg/dL High LDL: 160-189 mg/dL Very High LDL: greater than or equal to 190 mg/dL HDL 40 L >40 mg/dL Desirable HDL: greater than 40 mg/dL Note: This HDL assay may give artificially low results in patients with liver disease. Alk Phos 75 39-117 U/L TSH 2.68 0.32-4.0 uIU/mL RUN: 08/08/24 0940 PAGE 1 [facility] [address] [place] [id number] Harness Rigger: Eduardo Badillo M.D. Specimen Inquiry Name: Alexei Cochran Age/Sex: 58/M : 1965 Unit#: [id number] Attend Dr: Rhiannon Hernandez Re07/25/24 Status: DEP [facility] Disch: SPEC : [id number] CAM: 07/25/24 STATUS: COMP REQ : [id number] RECD: 07/25/[address]: Rhiannon Hernandez COMP: 07/25/24 ENTERED: 07/25/24-0845 OTHR : ORDERED: MICARU Test Result Flag Reference Creat, Ur 65.15 mg/dL Microalbumin Ur < 5.0 mg/L Alb/Creat Ratio Test not performed <30 ug/mg cr Unable to calculate albumin/creatinine ratio due to low microalbumin or creatinine result. END OF REPORT END OF REPORT Coding Level of Care Code Tele Est Pt Level 2 (49182) Complex EM visit Add On G2211 Diagnoses Elevated liver enzymes R74.8 Assessment & Plan Assessment & Plan (1) Elevated liver enzymes: Code(s): R74.8 - Abnormal levels of other serum enzymes Category: Medical Plan: . Orders: Orders Hepatitis A,B,C Profile 08/08/24 R74.8 - Abnormal levels of other serum enzymes Amylase 08/08/24 R74.8 - Abnormal levels of other serum enzymes Bilirubin Direct 08/08/24 R74.8 - Abnormal levels of other serum enzymes Monotest 08/08/24 R74.8 - Abnormal levels of other serum enzymes Liver Panel 08/08/24 R74.8 - Abnormal levels of other serum enzymes Lipase 08/08/24 R74.8 - Abnormal levels of other serum enzymes H pylori Ag Stool 08/08/24 R74.8 - Abnormal levels of other serum enzymes
== END 2024-08-08 16:28 | disposition home or self-care (01) ==
LOC: HO.HMCFM 09:35
PROVIDERS: PCP Family Medicine; Visit Provider Nurse Practitioner Family
DX: R74.8 Abnormal levels of other serum enzymes (principal)

== ENCOUNTER → 2024-08-08 09:35 | Outpatient (BNVA) | payer OTHER, SELFPAY | PROVIDERS: PCP Family Medicine; Visit Provider Nurse Practitioner Family ==

== ENCOUNTER 2024-08-14 13:08 | Outpatient (REF) | payer OTHER, SELFPAY ==
[2024-08-14 15:11] LABS: Alanine Aminotransferase 65 U/L (0-40); Albumin Level 4.3 g/dL (3.5-5.0); Alkaline Phosphatase 75 U/L (39-117); Aspartate Amino Transferase 41 U/L (5-37); Bilirubin Direct 0.1 mg/dL (0.0-0.5); Bilirubin Total 0.5 mg/dL (0.0-1.0); Lipase 38 U/L (8-78); Total Protein 7.2 g/dL (6.5-8.0)
[2024-08-14 15:14] LABS: Monotest Negative (Negative)
[2024-08-14 15:33] LABS: Amylase 60 U/L (28-100)
[2024-08-15 08:11] LABS: HBS Num1 2.56 mIU/mL (0-7.99); HBc Num1 0.11 S/CO (0.00-0.79); HBsAGNum1 0.34 S/CO (0.00-0.99); Hepatitis A Antibody IgM 0.25 Index (0-0.79); Hepatitis B Core Antibody Nonreactive (Nonreactive); Hepatitis B Surface Antigen Negative (Negative); ~HepC Num1 0.12 S/CO (0.00-0.79); ~Hepatitis A Antibody IgM Nonreactive (Nonreactive); ~Hepatitis B Surface Antibody NONREACTIVE (Nonreactive); ~Hepatitis C Antibody Nonreactive (Nonreactive)
== END 2024-08-14 13:09 | disposition home or self-care (01) ==
LOC: HO.WFDLDS 13:08
PROVIDERS: Visit Provider Nurse Practitioner Family
DX: R74.8 Abnormal levels of other serum enzymes (principal)
CPT/HCPCS: 36415; 80076; 82150; 83690; 86308; 86704; 86706; 86709; 86803; 87340

== ENCOUNTER 2024-08-16 11:45 | Outpatient (REF) | payer OTHER, SELFPAY | END 2024-08-16 11:46 | disposition home or self-care (01) | LOC: HO.LNP 11:45 | PROVIDERS: Visit Provider Nurse Practitioner Family | DX: R74.8 Abnormal levels of other serum enzymes (principal) | CPT/HCPCS: 87338 ==

== ENCOUNTER 2024-08-20 14:00 | Outpatient (AMB) | payer OTHER, SELFPAY ==
--- NOTE | 2024-08-20 16:03 | A.OFFPC_ITS ---
Intake Visit Reasons: lft Allergies No Known Allergies Allergy (Verified 08/20/24 17:06) Tobacco use date assessed: 07/25/24 Dental Screening Dental Screen Date: 07/25/24 HPI HPI Comments History of Present Illness Details History of Present Illness The patient is a 58-year-old male presenting with elevated liver enzymes. The issue was initially identified during previous testing, and repeat labs were completed prior to this visit. The patient's AST has decreased from 53 to 41, and ALT has reduced from 69 to 65. Despite this improvement, the enzymes remain elevated. The patient's lipid profile and protein stores are within normal ranges, and the pancreatic enzymes, amylase and lipase, were reported as co mpletely normal. A stool culture was negative for bacterial pathogens, and the hepatitis profile showed no active infection, though it indicated a lack of immunity to hepatitis B. The patient recalls mild symptoms manifesting as a slight cramp or strain-like pain occurring occasionally, which is not constant and is not exacerbated by normal activities. The patient has associated this with the intake of Tylenol following an accident, but without significant progression of symptoms. The current plan includes monitoring the liver enzymes and considering additional imaging or specialist referral if symptoms increase. Review of Systems - General: Denies persistent pain. - Gastrointestinal: Reports slight cramp -like pain occasionally. Plan - Monitor elevated liver enzymes with re peat testing in six months. - Consider imaging studies or referral t o a specialist if symptoms worsen. - Recommendation for hepatitis B vaccine booster due to non-immunity. - Follow-up through standard annual visi t unless earlier intervention is warranted by symptom progression. Discussion Notes I discussed the current status of the patient's liver enzymes, noting a positive trend in decreased levels though they remain elevated, thus requiring further monitoring. We explored the possibility of the recent acetaminophen use contributing to enzyme elevation and considered continued observation versus imaging or specialist referral. The patient's amylase and lipase results were normal, ruling out pancreatic involvement. No bacterial infection was noted on the stool test. The hepatitis profile was unremarkable except for the lack of hepatitis B immunity. I informed the patient about the option for a hepatitis B booster, which is available at local pharmacies if desired. Follow-up plans include repeat lab work in six months. Immediate follow-up was advised should any symptoms intensify. Patient Instructions - Schedule a lab test for liver enzymes in six months & telehealth visit - message sent to front office to schedule. - Remain vigilant for any new or worseni ng symptoms and report them promptly. - Consider receiving a hepatitis B vacci ne booster at the local pharmacy. - Continue with routine follow-ups, with earlier evaluation if symptoms change. - Maintain current health practices and monitor for any signs or symptoms suggestive of hepatic dysfunction. Patient was informed and verbally consented to the use of an ambient scribe for clinic note documentation during this visit. This note is constructed using voice recognition software. While every effort has been made to ensure accuracy in deicer inspector pneumatic, still errors may have been included Sometimes, these errors may affect the content or meaning of the given sentence . Total time spent caring for the patient today was 28 minutes. This includes time spent before the visit reviewing the chart, time spent during the visit, and time spent after the visit on documentation PFSH Medical History Hypothyroidism Surgical History H/O prostate biopsy Social History Housing: House Patient Tobacco Use Status: Never used Tobacco e-Cigarette/Vaping Use: Never Used Second Hand Smoke Exposure: No service: No Current occupational status: retired Current occupational exposures/hazards: No Cognitive needs: No Hearing needs: No Vision needs: No Questionnaire Thrive Questionnaire Date Thrive assessed: 07/25/24 TIO-7 AMB Questionnaire TIO-7 Date TIO - 7 assessed: 07/25/24 Source: Developed by Drs. Wenceslao Camilo, Bibiana Gleason, Rahul David and colleagues, with an educational senait from [employer] Referrals. Physical exam (Primary Care) Tobacco/Smoking Status: Tobacco use Status Tobacco use date assessed 07/25/24 08/20/24 16:05 Patient Tobacco Use Status Never used Tobacco 08/20/24 16:05 e-Cigarette/Vaping Use Never Used 08/20/24 16:05 Thrive Assessment: Date of Thrive Assessment Date Thrive assessed 07/25/24 08/20/24 16:05 Telehealth Telehealth [facility]health [facility] Location of provider rendering services: practice address Location of patient: address on file Patient Identification confirmed using: Name, : Yes Telehealth method: voice only Patient verbally consented to treatment: Yes Patient verbally consented to billing insurance company: Yes Patient informed of any privacy concerns related to visit: Yes Minutes spent on Phone/Video with Pt.: 10 Coding Level of Care Code Est Pt Level 2 (25091) Complex EM visit Add On G2211 Diagnoses Elevated liver enzymes R74.8 Not immune to hepatitis B virus Z78.9 Assessment & Plan Assessment & Plan (1) Elevated liver enzymes: Code(s): R74.8 - Abnormal levels of other serum enzymes Category: Medical (2) Not immune to hepatitis B virus: Code(s): Z78.9 - Other specified health status Category: Medical Plan . Orders: Orders Comprehensive Met. Panel 01/31/25 R74.8 - Abnormal levels of other serum enzymes
== END 2024-08-20 17:08 | disposition home or self-care (01) ==
LOC: HO.HMCFM 14:00
PROVIDERS: PCP Family Medicine; Visit Provider Nurse Practitioner Family
DX: R74.8 Abnormal levels of other serum enzymes (principal); Z78.9 Other specified health status

== ENCOUNTER 2024-11-09 08:14 | Outpatient (REF) | payer OTHER, SELFPAY ==
[2024-11-09 09:42] LABS: PSA,Total (Free>4and<10) 5.25 ng/mL (0.00-4.00)
[2024-11-13 05:58] LABS: Free Prostate Spec Ag 0.8 ng/mL; Percent Free Prostate Spec Ag 13 % (calc) (>25); Prostate Specific Ag Total 6.1 ng/mL (< OR = 4.0)
== END 2024-11-09 08:15 | disposition home or self-care (01) ==
LOC: HO.LAB 08:14
PROVIDERS: PCP Family Medicine; Visit Provider Urology
DX: R97.20 Elevated prostate specific antigen [PSA] (principal); Z12.5 Encounter for screening for malignant neoplasm of prostate
CPT/HCPCS: 36415; 84153; 84154

== ENCOUNTER 2024-11-22 08:31 | Outpatient (AMB) | payer OTHER, SELFPAY ==
--- NOTE | 2024-11-22 08:31 | MHC.OFFVIS ---
Intake Visit Reasons: 6M PSA(set)Elevated Intake Note: Patient is present for 6M PSA Urology Medication:NONE Antibiotic Allergy:NONE Blood Thinner:NONE Agriculture Teacher Required: No Allergies No Known Allergies Allergy (Verified 11/22/24 08:31) HPI Comments Details: Alexei is a pleasant male. He is a patient of Dr. Daily. He is seen for the following urologic conditions - elevated PSA Telemedicine Evaluation 15 min Consultation DoximSetJam Damien Video Had difficulty cutting finasteride tablet At 5 mg finasteride had side effects with tender breasts Was tolerating low-dose Trial 1 mg daily finasteride Recommend six-month follow-up with prostate MRI Six-month follow-up Elevated PSA Family history of BPH EMMANUEL 2+ prostate Prostate Biopsy - 09/23 Negative Inflamed 60gm PSA 03/24 5.6, 09/23 7.9 10%, 03/25 6.7 13%, 10/26 3.4, 04/25 3.0, 11/27 6.1 13% Discussed variability with PSA testing PFSH Medical History Hypothyroidism Surgical History H/O prostate biopsy Social History Housing: House Patient Tobacco Use Status: Never used Tobacco e-Cigarette/Vaping Use: Never Used Second Hand Smoke Exposure: No service: No Current occupational status: retired Current occupational exposures/hazards: No Cognitive needs: No Hearing needs: No Vision needs: No Review of Systems Const All systems reviewed & are unremarkable except as noted in HPI and below Reports no additional complaints Resp Reports no additional complaints GI Reports no additional complaints Reports as per HPI Musc Reports no additional complaints Physical Exam Telemedicine evaluation Appropriate responses Regular breathing rate and rhythm HEENT Head: Yes normal to inspection Ears: hearing grossly normal bilaterally Eyes General: appearance normal, both eyes and all related structures Neck Neck: Yes normal visual inspection Chest Chest palpation & inspection: normal inspection of the chest Resp Effort & Inspection: normal respiratory effort and able to speak in complete sentences Telehealth Telehealth Telehealth Platform: [employer] Location of provider rendering services: practice address Location of patient: address on file Patient Identification confirmed using: Name, : Yes Telehealth method: video Patient verbally consented to treatment: Yes Patient verbally consented to billing insurance company: Yes Patient informed of any privacy concerns related to visit: Yes Minutes spent on Phone/Video with Pt.: 15 Assessment & Plan Assessment & Plan (1) Elevated PSA: Code(s): R97.20 - Elevated prostate specific antigen [PSA] Category: Medical (2) Bladder outlet obstruction: Code(s): N32.0 - Bladder-neck obstruction Category: Medical Plan Six-month follow-up PSA with MRI Orders: Orders MR Prostate wo/w con Today R97.20 - Elevated prostate specific antigen [PSA] Prostate Specific Antigen 6 Months R97.20 - Elevated prostate specific antigen [PSA] Medications: New finasteride 1 mg PO DAILY 90 days 90 tabs 1RF N32.0 - Bladder-neck obstruction Patient Instructions: This note is constructed using voice recognition software. While every effort has been made to ensure accuracy automatic nailing machine feeder errors may have been included. Imaging studies, laboratory and physical exam results were discussed and reviewed in detail. No major barriers to patient understanding were identified. An opportunity to ask questions regarding the treatment plan was provided. All questions were answered. The patient expressed understanding and agreement with the above treatment plan. The patient is aware they should contact our office by phone for worsening of their current condition or the appearance of new urologic symptoms. Compliance is encouraged with any medications and followup testing that is ordered. It is a privilege to participate in the urologic care of your patient. If you have any questions or concerns regarding treatment for the above conditions, or other urologic issues, please do not hesitate to contact me. The office telephone contact is [phone]. Sincerely, Dr Washington King MD, EMM[facility] - Urology Compassionate Specialist Care for the Genitourinary System Coding Level of Care Code Tele Est Pt Level 3 (19195) Diagnoses Elevated PSA R97.20 Bladder outlet obstruction N32.0
== END 2024-11-22 09:19 | disposition home or self-care (01) ==
LOC: HO.HUSH 08:31
PROVIDERS: PCP Family Medicine; Visit Provider Urology
DX: R97.20 Elevated prostate specific antigen [PSA] (principal); N32.0 Bladder-neck obstruction
CPT/HCPCS: 99213

== ENCOUNTER → 2024-11-22 08:31 | Outpatient (BNVA) | payer OTHER, SELFPAY | PROVIDERS: PCP Family Medicine; Visit Provider Urology ==

== ENCOUNTER 2025-05-13 06:45 | Outpatient (REF) | payer OTHER, SELFPAY ==
[2025-05-13 08:28] LABS: Prostate Specific Antigen 5.77 ng/mL (<0.05-4.0)
== END 2025-05-13 06:46 | disposition home or self-care (01) ==
LOC: HO.LAB 06:45
PROVIDERS: PCP Family Medicine; Visit Provider Urology
DX: R97.20 Elevated prostate specific antigen [PSA] (principal); Z12.5 Encounter for screening for malignant neoplasm of prostate
CPT/HCPCS: 36415; 84153

== ENCOUNTER 2025-05-21 08:19 | Outpatient (AMB) | payer OTHER, SELFPAY ==
--- NOTE | 2025-05-21 08:37 | MHC.OFFVIS ---
Intake Visit Reasons: 6m/MRI/PSA Intake Note: Patient is present for 6M PSA Urology Medication:Finasteride Antibiotic Allergy:NONE Blood Thinner:NONE Labs done :05/13/2025 PSA 5.77 PVR: 22 mls Membership Coordinator Required: No Accompanied by: Self / Same As Patient Allergies No Known Allergies Allergy (Verified 05/21/25 08:39) HPI Comments Details: Alexei is a pleasant male. He is a patient of Dr. Daily. He is seen for the following urologic conditions - elevated PSA Has been on 1 mg finasteride PSA stable Discussed prostate MRI He has significant deductible on insurance Understands there is potential for delay in diagnosis but would like to continue with interval lab work surveillance Elevated PSA Family history of BPH EMMANUEL 2+ prostate Prostate Biopsy - 09/23 Negative Inflamed 60gm PSA 03/24 5.6, 09/23 7.9 10%, 03/25 6.7 13%, 10/26 3.4, 04/25 3.0, 11/27 6.1 13%, 05/27 5.7 Discussed variability with PSA testing PFSH Medical History Hypothyroidism Surgical History H/O prostate biopsy Social History Housing: House Patient Tobacco Use Status: Never used Tobacco e-Cigarette/Vaping Use: Never Used Second Hand Smoke Exposure: No service: No Current occupational status: retired Current occupational exposures/hazards: No Cognitive needs: No Hearing needs: No Vision needs: No Review of Systems Const Denies chills and Denies fever(s) Card Reports no additional complaints and Denies syncope Resp Denies cough GI Denies abdominal pain and Denies heartburn Reports as per HPI and Denies change in libido Neuro Denies syncope Psych Denies change in libido Endo Denies change in libido Physical Exam Const General: cooperative, healthy appearing, comfortable and no acute distress Orientation/consciousness: patient oriented x3 HEENT Face and sinus: Yes normal facial exam Mouth: moist mucous membranes Neck Neck: Yes normal visual inspection, Yes full ROM and Yes trachea midline Chest Chest palpation & inspection: normal inspection of the chest Resp Effort & Inspection: normal respiratory effort, able to speak in complete sentences and no respiratory distress GI Inspection: Yes normal to inspection Back/Spine/Pelvis Cervical Spine: normal cervical lordosis Thoracic/Lumbar Spine: thoracic and lumbar spine normal to inspection Skin General skin exam: no rashes or lesions noted Neuro General: patient oriented x3, gait normal, tone normal and moves all extremities Extrem General: Yes normal to inspection and Yes capillary refill normal Assessment & Plan Assessment & Plan (1) Elevated PSA: Code(s): R97.20 - Elevated prostate specific antigen [PSA] Category: Medical (2) Bladder outlet obstruction: Code(s): N32.0 - Bladder-neck obstruction Category: Medical Plan Six-month follow-up PSA Orders: Orders Prostate Specific Antigen 6 Months N32.0 - Bladder-neck obstruction Patient Instructions: This note is constructed using voice recognition software. While every effort has been made to ensure accuracy videotape sales representative errors may have been included. Imaging studies, laboratory and physical exam results were discussed and reviewed in detail. No major barriers to patient understanding were identified. An opportunity to ask questions regarding the treatment plan was provided. All questions were answered. The patient expressed understanding and agreement with the above treatment plan. The patient is aware they should contact our office by phone for worsening of their current condition or the appearance of new urologic symptoms. Compliance is encouraged with any medications and followup testing that is ordered. It is a privilege to participate in the urologic care of your patient. If you have any questions or concerns regarding treatment for the above conditions, or other urologic issues, please do not hesitate to contact me. The office telephone contact is [phone]. Sincerely, Dr Washington King MD, [facility] - Urology Compassionate Specialist Care for the Genitourinary System Coding Level of Care Code Est Pt Level 3 (68849) Complex EM visit Add On G2211 Diagnoses Elevated PSA R97.20 Bladder outlet obstruction N32.0
== END 2025-05-21 09:10 | disposition home or self-care (01) ==
LOC: HO.HUSH 08:19
PROVIDERS: PCP Family Medicine; Visit Provider Urology
DX: R97.20 Elevated prostate specific antigen [PSA] (principal); N32.0 Bladder-neck obstruction; Z13.9 Encounter for screening, unspecified
CPT/HCPCS: 99213; G2211

== ENCOUNTER → 2025-05-21 08:19 | Outpatient (BNVA) | payer OTHER, SELFPAY | PROVIDERS: PCP Family Medicine; Visit Provider Urology | DX: R97.20 Elevated prostate specific antigen [PSA] (principal); M32.0 Drug-induced systemic lupus erythematosus | CPT/HCPCS: 51798; 81003 ==

== ENCOUNTER 2025-07-23 08:59 | Outpatient (REF) | payer OTHER, SELFPAY ==
[2025-07-23 12:29] LABS: Alanine Aminotransferase 31 U/L (0-40); Albumin Level 4.5 g/dL (3.5-5.0); Alkaline Phosphatase 67 U/L (39-117); Anion Gap 8 (12-20); Aspartate Amino Transferase 37 U/L (5-37); Blood Urea Nitrogen 13 mg/dL (9-16); Calcium 9.0 mg/dL (8.4-10.2); Carbon Dioxide 29 mmol/L (22-29); Chloride 107 mmol/L (96-108); Estimated Glomerular Filt Rate > 60; Potassium 4.1 mmol/L (3.3-5.1); Sodium 140 mmol/L (135-145); Total Protein 7.1 g/dL (6.5-8.0)
== END 2025-07-23 09:00 | disposition home or self-care (01) ==
LOC: HO.WFDLDS 08:59
PROVIDERS: Visit Provider Nurse Practitioner Family
DX: R74.8 Abnormal levels of other serum enzymes (principal)
CPT/HCPCS: 36415; 80053; 82248

== ENCOUNTER 2025-07-29 08:31 | Outpatient (AMB) | payer OTHER, SELFPAY ==
--- NOTE | 2025-07-29 08:49 | MHC.PC.OV ---
Vital Signs 07/29/25 08:51 Height 5 ft 10 in Weight 183 lb 6 oz BMI 26.3 BP 138/84 Blood Pressure Location Rt brachial Position Sitting Respiration 14 Pulse 60 Pulse Source Pulse Oximeter Temp 98 F Temp Source Oral Pulse Oximetry (%) 98 Oxygen Delivery Method Room Air Intake Visit Reasons: cpe Allergies No Known Allergies Allergy (Verified 07/29/25 08:50) Medication List - Last Reconciled 07/29/25 by Eduardo Daily MD finasteride 1 mg PO DAILY 90 days levothyroxine 125 mcg PO DAILY 90 days Tobacco use date assessed: 07/29/25 Dental Screening Dental Screen Date: 07/29/25 Did you have a dental visit in the last 12 months?: Yes Did you have a dental problem in the last 6 months where you did not have access to dental care?: No Was dental information given to patient?: Patient has dentist HPI cpe HPI Details 59 y/o male presents for a CPE with f/u labs and health maintenance. Some labs drawn 07/23/25. Reviewed labs with pt. Liver enzymes were fine. No lipid panel to review. No thyroid levels to review. He is on levothyroxine 125 mcg daily. Followed by Urology for BPH. He is on finaseteride 1mg daily. [facility] Medical History Hypothyroidism Surgical History H/O prostate biopsy Social History Housing: House Patient Tobacco Use Status: Never used Tobacco e-Cigarette/Vaping Use: Never Used Second Hand Smoke Exposure: No service: No Current occupational status: retired Current occupational exposures/hazards: No Cognitive needs: No Hearing needs: No Vision needs: No Questionnaire PHQ-9 Over the last 2 weeks, how often have you been bothered by any of the following problems? 1. Little interest or pleasure in doing things: not at all 2. Feeling down, depressed, or hopeless: not at all 3. Trouble falling or staying asleep, or sleeping too much: not at all 4. Feeling tired or having little energy: not at all 5. Poor appetite or overeating: not at all 6. Feeling bad about yourself - or that you are a failure or have let yourself or your family down: not at all 7. Trouble concentrating on things, such as reading the newspaper or watching television: not at all 8. Moving or speaking so slowly that other people could have noticed. Or the opposite - being so fidgety or restless that you have been moving around a lot more than usual: not at all 9. Thoughts that you would be better off or of hurting yourself in some way: not at all Total score: 0 Source: Developed by Drs. Wenceslao Camilo, Bibiana Gleason, Rahul David and colleagues, with an educational senait from [employer]. Thrive Questionnaire Date Thrive assessed: 07/25/24 I am a: Patient What is your living situation today?: I have a steady place to live Within the past 12 months, did the food you bought not last and you didn't have the money to get more?: Often true Within the past 12 months, did you worry whether your food would run out before you got money to buy more?: Often true Do you have trouble paying for medicines?: No Do you have trouble getting transportation to medical appointments?: No Do you have trouble paying your heating and electricity bill?: No Do you have trouble taking care of your child, family member or friend?: No Do you have trouble with day-to-day activities such as bathing, preparing meals, shopping, managing finances, etc.?: No Are you currently unemployed and looking for a job?: No Are you interested in more education?: No Please select the resources that you would like help with: None Currently or been in a relationship where the following occur: No concerns reported THRIVE Score: 2 AUDIT C Alcohol Use Questionnaire (AUDIT-C) 1. How often do you have a drink containing alcohol?: 2-4 times a month 2. How many drinks containing alcohol do you have on a typical day when you are drinking?: 1 or 2 3. How often do you have six or more drinks on one occasion?: Never Total Score: 2 TIO-7 AMB Questionnaire TIO-7 Date TIO - 7 assessed: 07/25/24 Feeling nervous, anxious, or on edge: 0 = Not at all Not being able to stop or control worryin = Not at all Worrying too much about different things: 0 = Not at all Trouble relaxin = Not at all Being so restless that it is hard to sit still: 0 = Not at all Becoming easily annoyed or irritable: 0 = Not at all Feeling afraid as if something awful might happen: 0 = Not at all Total TIO-7 score (0-4 normal; 5-9 mild; 10-14 moderate; 15-21 severe): 0 Source: Developed by Drs. Wenceslao Camilo, Bibiana Gleason, Rahul David and colleagues, with an educational senait from [employer]. Review of Systems Const Denies chills, Denies fatigue, Denies fever(s), Denies headache(s) and Denies weakness Eyes Denies change in vision ENT Denies dizziness, Denies headache(s), Denies hearing loss, Denies nasal congestion, Denies sinus pain, Denies sinus pressure and Denies sore throat Card Denies chest pain, Denies lightheadedness, Denies dyspnea and Denies other (palpitations) Resp Denies cough, Denies dyspnea and Denies wheezing GI Denies abdominal pain, Denies melena, Denies hematochezia, Denies change in bowel habits, Denies dyspepsia and Denies nausea Denies hematuria and Denies dysuria Musc Denies abnormal gait, Denies myalgias, Denies arthralgias, Denies numbness and Denies tingling Skin/Breast Denies rash, Denies unusual bruising and Denies wounds Neuro Denies abnormal gait, Denies dizziness, Denies headache(s), Denies memory loss, Denies numbness, Denies Sensory deficit (Neuro), Denies tingling and Denies weakness Psych Denies anxiety, Denies depression and Denies memory loss Endo Denies cold intolerance, Denies fatigue, Denies heat intolerance, Denies polydipsia and Denies polyuria Allen/Lymph Denies easy bleeding and Denies easy bruising Aller/Immun Denies wheezing Physical exam (Primary Care) Vital Signs: Last Vital Signs Temp 98 F 07/29/25 08:51 Pulse 60 07/29/25 08:51 Resp 14 07/29/25 08:51 BP 138/84 07/29/25 08:51 Pulse Ox 98 07/29/25 08:51 Oxygen Delivery Method Room Air 07/29/25 08:51 BMI result Body Mass Index 26.3 Tobacco/Smoking Status: Tobacco use Status Tobacco use date assessed 07/29/25 07/29/25 08:53 Patient Tobacco Use Status Never used Tobacco 07/29/25 08:53 e-Cigarette/Vaping Use Never Used 07/29/25 08:53 PHQ-9: PHQ-9 Score PHQ-9: Total score 0 07/29/25 08:53 Thrive Assessment: Date of Thrive Assessment Date Thrive assessed 07/25/24 07/29/25 08:53 Currently or been in a relationship where the following occur: No concerns reported Const General: no acute distress, well developed, alert and awake Nutritional Appearance: well nourished Orientation/consciousness: patient oriented x3 HENMT Head: Yes normocephalic and Yes atraumatic Ears: hearing grossly normal bilaterally and TM's normal bilaterally General nose exam: Normal external nose present and Normal nares present Mouth: Normal oral and palatal mucosa present and moist mucous membranes Teeth and gingiva: dentition normal Throat: Yes posterior oropharynx normal Eyes General: appearance normal, both eyes and all related structures Pupils: Equal, round and reactive pupils present and Pupil accommodation reflex normal EOM: EOMs intact bilaterally Neck Neck: Yes normal visual inspection, Yes no lymphadenopathy and Yes trachea midline Thyroid: Thyroid normal Carotids: no bruits Lymphatic: no lymphadenopathy noted Chest Chest palpation & inspection: normal inspection of the chest Resp Effort & Inspection: normal respiratory effort Auscultation: clear to auscultation bilaterally Cardio Rate: regular rate Rhythm: regular rhythm Heart sounds: S1 normal heart sound present, S2 normal heart sound present, no gallops, no murmurs and no rubs Bruits: no abdominal aortic bruits and no carotid bruits GI Palpation (GI): No Abdominal aortic bruit present, Soft to palpation, nontender, No hepatosplenomegaly present and No Rebound tenderness present Auscultation: normal bowel sounds General: Yes no CVA tenderness Back/Spine/Pelvis Back: no CVA tenderness Cervical Spine: cervical ROM normal and No Cervical spine tenderness Thoracic/Lumbar Spine: thoraco-lumbar ROM normal, No pain with thoraco-lumbar ROM, No thoracic spinal tenderness and No lumbar spinal tenderness Skin Lesions: no lesions Rashes: no rashes Trauma: no lacerations or abrasions Wounds: no wounds Nails: normal Neuro General: patient oriented x3 Cranial nerves: Yes Equal, round and reactive pupils present Cognition (Neuro): normal cognition Gait exam (Neuro): Normal gait present Motor exam (neuro): 5/5 motor strength present throughout Sensory Exam: No Sensory deficit (Neuro) Deep tendon reflexes (DTR's): Right patellar reflex intensity grade: 2+ and Left patellar reflex intensity grade: 2+ Extrem General: Yes normal to inspection and No edema Psych Appearance: grossly normal Affect: normal affect Attitude: cooperative Thought process: Normal thought process present Coding Level of Care Code Est Pt Level 3 (95688) Est Pt Prev Care 40-64y(37538) Diagnoses Adult general medical exam Z00.00 Hypercholesterolemia E78.00 Acquired hypothyroidism E03.9 Hypothyroidism type: acquired Screening for colon cancer Z12.11 Screening for prostate cancer Z12.5 Assessment & Plan Assessment & Plan (1) Adult general medical exam: Code(s): Z00.00 - Encounter for general adult medical examination without abnormal findings Category: Medical Plan: 59-year-old male presents for complete physical exam Encouraged healthy diet with active lifestyle and plenty of exercise (2) Hypercholesterolemia: Code(s): E78.00 - Pure hypercholesterolemia, unspecified Category: Medical Plan: LDL cholesterol has been above goal of less than 100 previously Rechecking lipids (3) Hypothyroidism: Code(s): E03.9 - Hypothyroidism, unspecified Category: Medical Qualifiers: Hypothyroidism type: acquired Qualified Code(s): E03.9 - Hypothyroidism, unspecified Plan: Patient is taking levothyroxine as prescribed. Rechecking thyroid hormone levels (4) Screening for colon cancer: Code(s): Z12.11 - Encounter for screening for malignant neoplasm of colon Category: Medical Plan: Patient says his last colonoscopy was about 5 years. Uncertain if he has a strong family history of colon cancer - patient says that thought so but may be mistaken. He should follow-up with Gastroenterology to determine next colonoscopy. (5) Screening for prostate cancer: Code(s): Z12.5 - Encounter for screening for malignant neoplasm of prostate Category: Medical Plan: Followed by urology PSA was elevated Continue finasteride Follow-up with urology as recommended Orders: Orders Comprehensive [place]. Panel Fast Today Z00.00 - Encounter for general adult medical examination without abnormal findings Microalbumin, Random (w Creat) Today I10 - Essential (primary) hypertension Free T4 (Free Thyroxine) Today E03.9 - Hypothyroidism, unspecified Thyroid Stimulating Hormone Today E03.9 - Hypothyroidism, unspecified Complete Blood Count Auto Diff Today Z00.00 - Encounter for general adult medical examination without abnormal findings Lipid Panel Today Z00.00 - Encounter for general adult medical examination without abnormal findings Triiodothyronine T3 Total Today E03.9 - Hypothyroidism, unspecified Referrals Gastroenterology Referral Z12.11 - Encounter for screening for malignant neoplasm of colon
[2025-07-29 08:51] VITALS: BP 138/84; PULSE 60; RESP 14; TEMP 36.6; O2SAT 98; BMI 26.3
== END 2025-07-29 10:34 | disposition home or self-care (01) ==
LOC: HO.HMCFM 08:32
PROVIDERS: PCP Family Medicine; Visit Provider Family Medicine
DX: Z00.00 Encounter for general adult medical examination without abnormal findings (principal); E78.00 Pure hypercholesterolemia, unspecified; E03.9 Hypothyroidism, unspecified; Z12.11 Encounter for screening for malignant neoplasm of colon; Z12.5 Encounter for screening for malignant neoplasm of prostate